=== PATIENT | male | born 1960 | race Caucasian/White ===

== ENCOUNTER → 2017-05-05 | Day surgery (SDC) | payer MEDICARE ==
[~2017-05-05] MED LIST: AMITIZA24 MCG PO; BELLADONNA/OPIUM 60 MG SUPP PR ONE; BONIVA; BOTULINUM TOXIN TYPE A 100 UNIT VIAL IM ONE; BUPIVACAINE HCL 0.5% 10ML MPF VIAL INJ ONE; CEFAZOLIN SOD 1 GM VIAL ONE; CLINDAMYCIN 600MG/D5W 50ML 50 ML IV ONE; D3 PO; DEXAMETHASONE SOD PHOS INJ 4 MG/ML VIAL ONE; EPHEDRINE SULFATE INJ 50 MG/10 ML SYR ONE; FENTANYL CITRATE/PF 100MCG/2 ML INJ ONE; FLAX OIL1000 MG PO; FLAXSEED1000 MG PO; GENERLAC10 GM/15 M PO; GENTAMICIN 80MG/NS 100 ML 100 ML IV ONE; IBANDRONATE SO150 MG PO; IOPAMIDOL 610MG/1ML 300 MG/ML VIAL IV ONE; LIDOCAINE 2% /EPINEPHRINE 20 ML SDV INJ ONE; LIDOCAINE HCL 2% LOCAL INJ 5 ML SDV VIAL INJ ONE; LINZESS PO; MAGNESIUM OXID400 MG PO; MIDAZOLAM HCL 2 MG/2 ML VIAL ONE; MIRALAX PO; NEUDEXTA PO; NIACIN500 M1 PO; NIACIN500 M2 PO; ONDANSETRON HCL INJ 2 MG/ML VIAL ONE; OXYBUTIN PO; OXYBUTYNIN CHLO10 MG PO; PROPOFOL IV EMULSION 10 MG/ML 20 ML VIAL ONE; ROCURONIUM BROMIDE 10 MG/ML 5ML VIAL ONE; SERTRALINE HCL50 MG PO; SEVOFLURANE INHAL SOLN 250 ML PEN BTL ONE; SUCCINYLCHOLINE 200 MG/10 ML SYR ONE; TESTOSTERONE CREAM TOP; TESTOSTERONE TOP; TRIAMTERENE-HCTZ1 EA PO; VITAMIN D35000 UNI1 PO; [UNRECOGNIZED DRUG - OTHER]; [UNRECOGNIZED DRUG - OTHER] IM
--- NOTE | 2017-07-02 06:12 | Operative Report ---
DATE OF PROCEDURE: May 05, 2017 PREOPERATIVE DIAGNOSES: 1. Refractory urge incontinence. 2. Urinary tract infections. POSTOPERATIVE DIAGNOSES: 1. Refractory urge incontinence. 2. Urinary tract infections. 3. Bulbar urethral stricture. OPERATIONS PERFORMED: 1. Cystourethroscopy with calibration and dilation of bulbar urethral stricture. 2. Cystourethroscopy with bilateral ureteral catheterization and retrograde ureteropyelography (separate procedure performed for the urinary tract infections). 3. Interpretation of retrograde ureteropyelography. 4. Cystourethroscopy with intravesical injection of Botox (separate procedure performed to help with the refractory urge incontinence that the patient has that is incompletely managed with the patient's InterStim). 5. Explantation of right-sided InterStim electrode array (separate procedure performed for the right-sided electrodes). 6. Explantation of right-sided InterStim pulse generator (separate procedure performed from the separate incision for the right-sided generator that is no longer functioning). 7. Complete InterStim system implantation with incision and implantation of tined quadripolar lead electrodes into the left foramen S3 (separate procedure performed on the left hand side). 8. Fluoroscopic guidance for needle placement. 9. Subcutaneous implantation of sacral nerve neurostimulator on the left hand side (separate procedure performed from the separate incision). 10. Electronic analysis and complex programming. ANESTHESIA: General. COMPLICATIONS: None. CLINICAL SUMMARY: Eric De La Torre is a 57-year-old man with the above preoperative diagnoses. He has had successful InterStim was improving, but has required Botox on top of that in order to achieve better continence. The patient continues to self catheterize 5 times daily, occasionally more. The patient's right InterStim is no longer functioning and he is brought for replacement of that system with a new system and removal of the old system as well as his regularly scheduled Botox injection and evaluation of his urinary system in light of his recurrent infections. He is aware of the risks of bleeding, infection, injury to adjacent structures, need for additional procedures. He understands he cannot have MRIs with his InterStim in place. He understood all these risks and elected to proceed. OPERATIVE PROCEDURE IN DETAIL: Informed consent was verified. Eric De La Torre was properly identified, taken to the operating room, and placed on the cystoscopy table in supine position. Anesthesia was uneventfully begun. The patient was then carefully and gently repositioned in dorsal lithotomy position with all pressure points well padded. His genitalia were prepared and draped in usual sterile fashion. The 22.5-Spanish cystoscope sheath with the visual obturator in place was atraumatically inserted into the patient's urethra. It was guided down to the bulbar region where there was a short urethral stricture. This stricture is recurrent. The patient seems to be able to catheterize despite this stricture. We calibrated and dilated the stricture to the sheath with the visual obturator and thus bringing it to 22.5-Spanish in size. We then passed through the relatively unremarkable prostate bed which was significant for very early BPH, and then we entered the patient's bladder where panendoscopy revealed grade 3 trabeculations, but there were no tumors, no stones, and no true diverticula. Normally positioned and configured ureteral orifices were identified. An 8-Spanish catheter was used to cannulate each ureter, and retrograde ureteral pyelograms were performed. Interpretation of retrograde ureteropyelography: Contrast was instilled in retrograde fashion bilaterally. There were no tumors, no stones, and no diverticula. Unobstructed drainage was observed bilaterally fluoroscopically. Two hundred units of Botox were dissolved in 20 mL of sterile saline. We then injected them in an even distribution in 1 mL aliquots throughout the supratrigonal bladder. Once all this was completed, the patient's bladder was drained. Cystoscope was withdrawn. The patient was then transported to the open operating room where he was carefully and gently placed on the operating table in the prone position with all pressure points carefully well padded. Pillows were placed under the shins to allow the toes to dangle freely and pillows were placed under the lower abdomen to flatten the sacrum. The patient's back and buttocks were prepared and draped in usual sterile fashion. An incision was made overlying the current right-sided InterStim lead electrode array. We isolated the lead by dissecting down. We then applied gentle traction, it was consistent until the lead tines let go the perisacral tissue and we were able to remove the lead. A separate incision was then made overlying the right-sided InterStim pulse generator. This incision was brought down onto the implant. We then explanted the implant. We divided the lead and thus we were able to remove the old lead and the old pulse generator. We then fulgurated the lining of the pocket in order to general helper in its elimination. Needle was then introduced into the left foramen S3. Depth of the needle was confirmed and adjusted fluoroscopically and proper needle position was confirmed with direct observation of the lifting of the perineum or "bellowing" and observation of plantarflexion of the great toe utilizing the test stimulator box. The needle stylette was then removed, and the directional guidewire was then placed and confirmed fluoroscopically. The foramen needle was then removed. An incision was made peripherally to the directional guide, and the dilator and introducer sheath were placed over the directional guidewire and directed into the foramen until the opaque marker of the dilator was seen midway through the sacrum. The dilator obturator was unlocked and removed and the lead was then placed through the introducer sheath to the first white line. Position was checked fluoroscopically. The lead was then further introduced until 3 electrodes were visible anterior to the sacrum. Each electrode was then tested for the findings above and after satisfactory positioning was confirmed, as well as using continuous fluoroscopy, the introducer sheath was retracted thus deploying the lead tines into the perisacral tissue. Through a fourth incision, further incision was made into subcutaneous tissues posterior to the iliac crest and a pocket was developed for the new neurostimulator. The tunneling tool and tube were then placed from the lead site pocket site, and the tunneling tool was then removed and the lead was then fed through the tube and pulled out into the pocket site. The lead was then cleansed of bodily fluids with sterile water and it was dried thoroughly. The lead was then inserted into the InterStim pulse generator with the metal bands aligned and with the blue tip clearly visible in the distal portion of the pulse generator header. A single set screw was then tightened with the hex wrench. All 4 incisions were copiously irrigated and we verified hemostasis. The pulse generator was then placed into the subcutaneous pocket and the programming head was then placed over the implanted nerve stimulator. All impedance parameters were within acceptable limits. All incisions were then approximated in layers utilizing absorbable suture in 2 layers. Mastisol and Steri-Strips were applied. Bio-occlusive dressings were applied. The patient was then uneventfully reversed from anesthesia and taken to recovery room in stable condition. There were no complications to the procedure and patient tolerated the procedure well. Sponge, needle, and instrument counts were quoted as correct x2 at the end of the case. A combination of Marcaine and lidocaine with epinephrine was utilized for infiltration of all incisions and pocket sites for postoperative pain control. Using the clinician ui programmer, the patient was programmed to the lead of optimum sensation and given explicit instructions on using the patient ui programmer prior to discharge. We will of course follow the patient up in the office, at which point in time will check his impedance. Job#: [id number]
== END | disposition home or self-care (01) ==
LOC: OR 09:16
PROVIDERS: ATTEND Urology
DX: T85.118A Breakdown (mechanical) of other implanted electronic stimulator of nervous system, initial encounter (principal); N39.41 Urge incontinence; N35.9 Urethral stricture, unspecified; N39.0 Urinary tract infection, site not specified; N32.89 Other specified disorders of bladder; N40.0 Benign prostatic hyperplasia without lower urinary tract symptoms; G35 Multiple sclerosis; I10 Essential (primary) hypertension; Z01.810 Encounter for preprocedural cardiovascular examination
CPT/HCPCS: 52281; 64581; 64590; 74420; 76000; 88300; 93005; 95972; C1778; C1787; C1894; J0587; J0690; J1100; J1580; J2001 ×2; J2250; J2405; L8679; L8696; Q9967

== ENCOUNTER 2017-05-23 19:34 | Inpatient (IN) | payer MEDICARE, OTHER ==
[~2017-05-23] VITALS: Ht 193 cm; Wt 114.3 kg
[~2017-05-23 19:34] MED LIST changes: -BELLADONNA/OPIUM 60 MG SUPP PR ONE; -BOTULINUM TOXIN TYPE A 100 UNIT VIAL IM ONE; -BUPIVACAINE HCL 0.5% 10ML MPF VIAL INJ ONE; -CEFAZOLIN SOD 1 GM VIAL ONE; -CLINDAMYCIN 600MG/D5W 50ML 50 ML IV ONE; -DEXAMETHASONE SOD PHOS INJ 4 MG/ML VIAL ONE; -EPHEDRINE SULFATE INJ 50 MG/10 ML SYR ONE; -FENTANYL CITRATE/PF 100MCG/2 ML INJ ONE; -FLAXSEED1000 MG PO; -GENTAMICIN 80MG/NS 100 ML 100 ML IV ONE; -IOPAMIDOL 610MG/1ML 300 MG/ML VIAL IV ONE; -LIDOCAINE 2% /EPINEPHRINE 20 ML SDV INJ ONE; -LIDOCAINE HCL 2% LOCAL INJ 5 ML SDV VIAL INJ ONE; -MAGNESIUM OXID400 MG PO; -MIDAZOLAM HCL 2 MG/2 ML VIAL ONE; -ONDANSETRON HCL INJ 2 MG/ML VIAL ONE; -PROPOFOL IV EMULSION 10 MG/ML 20 ML VIAL ONE; -ROCURONIUM BROMIDE 10 MG/ML 5ML VIAL ONE; -SEVOFLURANE INHAL SOLN 250 ML PEN BTL ONE; -SUCCINYLCHOLINE 200 MG/10 ML SYR ONE; -VITAMIN D35000 UNI1 PO
[2017-05-23] MEDS ORDERED: SODIUM CHLORIDE 0.9% 500ML 500 ML IV STA (19:43)
[2017-05-23] MEDS ORDERED: CEFTRIAXONE SOD 1 GM VIAL IV SCH (19:45)
[2017-05-23] MEDS ORDERED: TRIAMTERENE-HCTZ1 EA PO (19:46)
[2017-05-23] MEDS ORDERED: NIACIN500 M2 PO (19:46)
[2017-05-23] MEDS ORDERED: MAGNESIUM OXID400 MG PO (19:46)
[2017-05-23] MEDS ORDERED: FLAXSEED1000 MG PO (19:46)
[2017-05-23] MEDS ORDERED: VITAMIN D35000 UNI1 PO (19:46)
[2017-05-23] MEDS ORDERED: SODIUM CHLORIDE 0.9% 1000ML 1,000 ML IV STA (20:01)
[2017-05-23 20:14] LABS: BASOPHILS # (AUTO) 0.1 (0.0-0.1); BASOPHILS % 0.7 % (0.0-1.0); EOSINOPHILS # (AUTO) 0.2 (0.0-0.4); EOSINOPHILS % 1.8 % (0.0-6.0); HEMATOCRIT 44.7 % (38.2-49.6); HEMOGLOBIN 14.9 g/dL (14.0-18.0); LYMPHOCYTES % 22.9 % (18.0-39.1); MEAN CORPUSCULAR HGB CONC 33.3 g/dL (31-35); MEAN CORPUSCULAR VOLUME 89.9 fL (81-99); MONOCYTES # (AUTO) 0.7 (0.2-0.8); MONOCYTES % 8.5 % (4.4-11.3); NEUTROPHILS # (AUTO) 5.7 (2.1-6.9); NEUTROPHILS % 65.8 % (38.7-80.0); PLATELET COUNT 311 x10e3/uL (140-360); RED BLOOD COUNT 4.97 x10e6/uL (4.3-5.7); RED CELL DISTRIBUTION WIDTH 12.3 % (11.7-14.4)
[2017-05-23 20:23] LABS: BILIRUBIN,URINE NEGATIVE (NEGATIVE); CLARITY,URINE CLOUDY (CLEAR); COLOR,URINE YELLOW (YELLOW); KETONES,URINE NEGATIVE (NEGATIVE); LEUKOCYTE ESTERASE ,URINE 2+ (NEGATIVE); PROTEIN,URINE DIPSTICK NEGATIVE (NEGATIVE); URINE UROBILINOGEN 0.2 mg/dL (0.2 - 1)
[2017-05-23 20:25] LABS: NITRITE,URINE POSITIVE (NEGATIVE)
[2017-05-23 20:29] LABS: ALANINE AMINOTRANSFERASE 31 IU/L (0-55); ALBUMIN 4.1 g/dL (3.5-5.0); ALBUMIN/GLOBULIN RATIO 0.9 (0.8-2.0); ALKALINE PHOSPHATASE 69 IU/L (40-150); ANION GAP 14.1 mmol/L (8-16); BLOOD UREA NITROGEN 13 mg/dL (7-26); BUN/CREATININE RATIO 15 (6-25); CALCIUM 8.8 mg/dL (8.4-10.2); CARBON DIOXIDE 26 mmol/L (22-29); CHLORIDE 101 mmol/L (98-107); CREATININE, SERUM 0.86 mg/dL (0.72-1.25); EST GLOMERULAR FILTRATION RATE > 60 ML/MIN (60-); GLUCOSE 134 mg/dL (74-118); POTASSIUM 4.1 mmol/L (3.5-5.1); SODIUM 137 mmol/L (136-145)
[2017-05-23 20:35] LABS: AMORPHOUS SEDIMENT,URINE FEW (FEW); BACTERIA,URINE MANY /HPF; EPITHELIAL CELLS,URINE RARE /LPF
--- NOTE | 2017-05-23 21:11 | Diagnostic Imaging Report ---
CT Abdomen and Pelvis without contrast INDICATION: Unable to urinate TECHNIQUE: Thin collimation axial images obtained from the diaphragm to the level of the pubic symphysis without nonionic intravenous contrast. RADIATION DOSE: Total DLP: 798.1 mGy*cm Estimated effective dose: (DLP x 0.015 x size factor) mSv CTDIvol has been reviewed. It is below the limits set by the Radiation Protocol Committee (RPC). COMPARISON: None. ABDOMEN FINDINGS: Lung Bases: Mild eventration of the left diaphragm with overlying subsegmental atelectasis or scar. Visualized portion of the mediastinum imaged. Prominent right cardiophrenic fat pads. The heart is normal in size Liver: Decreased attenuation. No mass. Gallbladder: Present and is contracted. No ductal dilatation. Pancreas: Normal attenuation without mass. Spleen: Normal size without mass. Adrenal Glands: No evidence for mass. Kidneys: Right: No renal calculus. Low attenuating lesion in the posterior interpolar cortex measures 16 mm. No hydronephrosis Left: Punctate calculus in the interpolar cortex. Low attenuating lesion in the upper pole near the hilum measures 14 mm.. No hydronephrosis. Lymph Nodes: No enlarged abdominal or periaortic lymph nodes. Aorta: Normal in diameter with scattered calcifications. PELVIS FINDINGS: Bowel: Stomach: Small gastric fundal diverticulum. Small Bowel: Normal in caliber with normal wall thickness. Large Bowel: Mild to moderate stool burden in the large bowel. There are a few scattered diverticula. No associated inflammation. Appendix: Not visualized and may be absent. Bladder: Contains a Gong catheter and is collapsed.. Ureters: No ureteral dilatation or calculus. No free fluid or fluid collection.. Bones: Compression deformity of L1 measuring 30% with kyphosis of T12-L1. There are associated degenerative changes of T12-L1. The spinal canal is patent. There are mild degenerative changes of the hips. No destructive lesions. Soft tissues: There is a stimulator in the posterior left pelvis with the electrode traversing the sacrum. This could be a bladder stimulator. Subcutaneous fluid collection in the posterior right pelvis measures 4.5 x 1.4 cm. Mild soft tissue inflammation of the proximal right thigh. IMPRESSION: 1. Tiny left intrarenal calculus. No obstructive uropathy. 2. Stimulator lead terminating in the left pelvis. This could be a bladder stimulator. 3. Bilateral renal cortical lesions, likely cysts. 4. Hepatic steatosis. 6. Chronic compression fracture of L1 with resulting kyphosis. Signed by: Dr. Daxa Marie MD on 05/23/2017 9:07 PM
[2017-05-23] MEDS: PIPER-TAZ 3.375 GM 50 ML IV SCH (21:36)
[2017-05-23] MEDS ORDERED: SODIUM CHLORIDE 0.9% 1000ML 1,000 ML IV SCH (21:44)
[2017-05-23] MEDS ORDERED: MORPHINE SULFATE 2 MG/ML SYR IV PRN (21:45)
[2017-05-23] MEDS ORDERED: ONDANSETRON HCL INJ 2 MG/ML VIAL IV PRN (21:45)
--- OUTSIDE RECORDS SUMMARY | 2017-05-23 22:20 | XMS REPORT ---
Author Author [facility] Address Unknown Phone Unavailable Care Team Providers Care Radiation Control Technician Name Role Phone PAT LAMA Unavailable Unavailable Problems This patient has no known problems. Allergies, Adverse Reactions, Alerts This patient has no known allergies or adverse reactions. Medications This patient has no known medications. Results Test Description Test Time Test Comments Text Results Atomic Results Result Comments CT ABDOMEN/PELVIS WO [place] [address] Patient Name: WILDER TIM MR #: [id number] : 1960 Age/Sex: 57/M Req #: [id number] Adm Physician: Ordered by: PAT LAMA MD Report #: [id number] Location: ER Room/Bed: Procedure: [id number] CT/CT ABDOMEN/PELVIS WO Exam Date: 05/23/17 Exam Time: 2029 REPORT STATUS: Signed CT Abdomen and Pelvis without contrast INDICATION: Unable to urinate TECHNIQUE: Thin collimation axial images obtained from the diaphragm to the level of the pubic symphysis without nonionic intravenous contrast. RADIATION DOSE: Total DLP: 798.1 mGy*cm Estimated effective dose: (DLP x 0.015 x size factor) mSv CTDIvol has been reviewed. It is below the limits set by the Radiation Protocol Committee (RPC). COMPARISON: None. ABDOMEN FINDINGS: Lung Bases: Mild eventration of the left diaphragm with overlying subsegmental atelectasis or scar. Visualized portion of the mediastinum imaged. Prominent right cardiophrenic fat pads. The heart is normal in size Liver: Decreased attenuation. No mass. Gallbladder: Present and is contracted. No ductal dilatation. Pancreas: Normal attenuation without mass. Spleen: Normal size without mass. Adrenal Glands: No evidence for mass. Kidneys: Right: No renal calculus. Low attenuating lesion in the posterior interpolar cortex measures 16 mm. No hydronephrosis Left: Punctate calculus in the interpolar cortex. Low attenuating lesion in the upper pole near the hilum measures 14 mm.. No hydronephrosis. Lymph Nodes: No enlarged abdominal or periaortic lymph nodes. Aorta: Normal in diameter with scattered calcifications. PELVIS FINDINGS: Bowel: Stomach: Small gastric fundal diverticulum. Small Bowel: Normal in caliber with normal wall thickness. Large Bowel: Mild to moderate stool burden in the large bowel. There are a few scattered diverticula. No associated inflammation. Appendix: Not visualized and may be absent. Bladder: Contains a Gong catheter and is collapsed.. Ureters : No ureteral dilatation or calculus. No free fluid or fluid collection.. Bones: Compression deformity of L1 measuring 30% with kyphosis of T12-L1. There are associated degenerative changes of T12-L1. The spinal canal is patent. There are mild degenerative changes of the hips. No destructive lesions. Soft tissues: There is a stimulator in the posterior left pelvis with the electrode traversing the sacrum. This could be a bladder stimulator. Subcutaneous fluid collection in the posterior right pelvis measures 4.5 x 1.4 cm. Mild soft tissue inflammation of the proximal right thigh. IMPRESSION: 1. Tiny left intrarenal calculus. No obstructive uropathy. 2. Stimulator lead terminating in the left pelvis. This could be a bladder stimulator. 3. Bilateral renal cortical lesions, likely cysts. 4. Hepatic steatosis. 6. Chronic compression fracture of L1 with resulting kyphosis. Signed by: Dr. Lori Marie MD on 05/23/2017 9:07 PM Dictated By: LORI MARIE MD 06 Transcribed By: ADEN on 05/23/172106 COPY TO: PAT LAMA MD
[2017-05-23 23:18] VITALS: BP 160/73
[2017-05-23 23:55] VITALS: BP 160/73
[2017-05-24] VITALS (8 sets, daily range): BP systolic 133–153; BP diastolic 60–70
[2017-05-24] MEDS: PIPER-TAZ 3.375 GM 50 ML IV SCH ×4 (03:27→21:30)
[2017-05-24 06:52] LABS: BASOPHILS # (AUTO) 0.1 (0.0-0.1); BASOPHILS % 0.8 % (0.0-1.0); EOSINOPHILS # (AUTO) 0.2 (0.0-0.4); EOSINOPHILS % 3.3 % (0.0-6.0); HEMATOCRIT 38.8 % (38.2-49.6); HEMOGLOBIN 13.2 g/dL (14.0-18.0); LYMPHOCYTES # (AUTO) 1.8 (1.0-3.2); LYMPHOCYTES % 24.2 % (18.0-39.1); MEAN CORPUSCULAR HEMOGLOBIN 30.4 pg (28-32); MEAN CORPUSCULAR VOLUME 89.4 fL (81-99); MONOCYTES # (AUTO) 0.9 (0.2-0.8); MONOCYTES % 12.3 % (4.4-11.3); NEUTROPHILS # (AUTO) 4.4 (2.1-6.9); PLATELET COUNT 261 x10e3/uL (140-360); RED BLOOD COUNT 4.34 x10e6/uL (4.3-5.7); RED CELL DISTRIBUTION WIDTH 12.4 % (11.7-14.4)
[2017-05-24 07:17] LABS: ALANINE AMINOTRANSFERASE 26 IU/L (0-55); ALBUMIN 3.1 g/dL (3.5-5.0); ALBUMIN/GLOBULIN RATIO 0.9 (0.8-2.0); ALKALINE PHOSPHATASE 54 IU/L (40-150); BLOOD UREA NITROGEN 13 mg/dL (7-26); BUN/CREATININE RATIO 16 (6-25); CALCIUM 8.5 mg/dL (8.4-10.2); CARBON DIOXIDE 23 mmol/L (22-29); CHLORIDE 108 mmol/L (98-107); CREATININE, SERUM 0.81 mg/dL (0.72-1.25); EST GLOMERULAR FILTRATION RATE > 60 ML/MIN (60-); GLUCOSE 110 mg/dL (74-118); SODIUM 140 mmol/L (136-145)
[2017-05-24] MEDS: VANCOMYCIN 1GM/NS 250 ML 250 ML IV SCH ×2 (07:43→19:20)
[2017-05-24] MEDS ORDERED: INTERFERON BETA 30 MCG IM SCH (09:15)
[2017-05-24] MEDS ORDERED: AVONEX INJ SCH (09:30)
--- NOTE | 2017-05-24 13:57 | History and Physical ---
PRIMARY CARE PROVIDER: Not available. UPPER LEATHER CUTTER: Dr. Alfonso Forbes. CHIEF COMPLAINT: Complicated urinary tract infection with pus discharge from the penis and also multiple sclerosis baseline. HISTORY: This 57 year male with multiple sclerosis has very limited function but he straight caths himself. Apparently he was developing increasing pain and pustular discharge. Patient was brought into the hospital for evaluation. Patient is stable at this time. He does have penile pus drainage. He was placed on antibiotics. The patient is otherwise stable. He was not able to void completely. Gong catheter was placed. PAST MEDICAL HISTORY: Multiple sclerosis. Neurogenic urinary bladder with straight cath for output. Ambulatory dysfunction. HOME MEDICATIONS: List reviewed. ALLERGIES: NO KNOWN DRUG ALLERGY. SOCIAL HISTORY: Patient does not smoke or use alcohol. No recreational drugs. REVIEW OF SYSTEMS: As mentioned. PHYSICAL EXAMINATION GENERAL: Patient is not in acute distress. He is awake. VITAL SIGNS: Temperature is 98. Blood pressure 140/75. Pulse rate 102. Respirations 18. HEENT: Normocephalic, atraumatic, anicteric. NECK: Supple grossly. PULMONARY: Clear. CARDIOVASCULAR: Regular rate and rhythm. ABDOMEN: Soft, nondistended, nontender. EXTREMITIES: No cyanosis or edema. NEUROLOGIC: Multiple sclerosis. : Penile area was draining pus discharge. Gong catheter in place. LABORATORY: Sodium 140, potassium 4, chloride 108, bicarb 23, BUN 13, creatinine 0.8. Glucose 110. WBC 7.4, hemoglobin 13, hematocrit 39, platelets 261. Urine is positive for nitrite, 2+ leukocyte esterase, WBC 20, many bacteria. IMPRESSION 1. Complicated urinary tract infection with neurogenic bladder and also chronic straight catheterization for urine output. 2. Multiple sclerosis. 3. Ambulatory dysfunction secondary to above. PLAN: Continue with IV antibiotics. Home medications. PT, OT. Gong care. Consultation with Dr. Alfonso Forbes has been done, and the patient has been seen. Job#: [id number]
[2017-05-24] MEDS ORDERED: ARTIFICIAL TEARS (OPTH) 15 ML BTL OU PRN (14:30)
[2017-05-24] MEDS: OXYBUTYNIN CHLORIDE 5 MG TAB PO SCH (16:49)
[2017-05-24] MEDS: ENOXAPARIN SOD INJ 40 MG/0.4 ML SYR SC SCH (16:49)
[2017-05-24] MEDS: MAGNESIUM OXIDE 400 MG TAB PO SCH (16:49)
[2017-05-24] MEDS: POLYETHYLENE GLYCOL 3350 17 GM PACK PO SCH (16:51)
[2017-05-24] MEDS ORDERED: MAGNESIUM OXIDE 400 MG TAB PO SCH (17:00)
[2017-05-25] VITALS (8 sets, daily range): BP systolic 135–164; BP diastolic 60–96
[2017-05-25] MEDS: PIPER-TAZ 3.375 GM 50 ML IV SCH ×2 (03:35→09:10)
[2017-05-25 06:41] LABS: BASOPHILS # (AUTO) 0.1 (0.0-0.1); BASOPHILS % 0.6 % (0.0-1.0); EOSINOPHILS # (AUTO) 0.2 (0.0-0.4); EOSINOPHILS % 2.8 % (0.0-6.0); HEMATOCRIT 40.1 % (38.2-49.6); HEMOGLOBIN 13.5 g/dL (14.0-18.0); LYMPHOCYTES # (AUTO) 1.8 (1.0-3.2); MEAN CORPUSCULAR HEMOGLOBIN 30.3 pg (28-32); MEAN CORPUSCULAR HGB CONC 33.7 g/dL (31-35); MEAN CORPUSCULAR VOLUME 90.1 fL (81-99); MONOCYTES # (AUTO) 0.8 (0.2-0.8); MONOCYTES % 10.1 % (4.4-11.3); NEUTROPHILS % 63.1 % (38.7-80.0); PLATELET COUNT 258 x10e3/uL (140-360); RED BLOOD COUNT 4.45 x10e6/uL (4.3-5.7); RED CELL DISTRIBUTION WIDTH 12.5 % (11.7-14.4)
[2017-05-25 07:24] LABS: BLOOD UREA NITROGEN 8 mg/dL (7-26); BUN/CREATININE RATIO 10 (6-25); CARBON DIOXIDE 25 mmol/L (22-29); CHLORIDE 107 mmol/L (98-107); CREATININE, SERUM 0.77 mg/dL (0.72-1.25); EST GLOMERULAR FILTRATION RATE > 60 ML/MIN (60-); GLUCOSE 103 mg/dL (74-118); SODIUM 139 mmol/L (136-145)
[2017-05-25] MEDS: VANCOMYCIN 1GM/NS 250 ML 250 ML IV SCH (07:42)
[2017-05-25] MEDS: OXYBUTYNIN CHLORIDE 5 MG TAB PO SCH ×2 (08:19→16:35)
[2017-05-25] MEDS: POLYETHYLENE GLYCOL 3350 17 GM PACK PO SCH ×2 (08:21→16:35)
[2017-05-25] MEDS: NIACIN 500 MG TABSR PO SCH (08:21)
[2017-05-25] MEDS: MAGNESIUM OXIDE 400 MG TAB PO SCH ×2 (08:42→16:35)
[2017-05-25] MEDS: FLAXSEED OIL PO SCH ×2 (08:43→16:36)
[2017-05-25] MEDS ORDERED: FLAXSEED OIL 1400 MG PO SCH (09:00)
[2017-05-25] MEDS ORDERED: CHOLECALCIFEROL 1,000 UNIT TAB PO SCH (09:00)
[2017-05-25] MEDS ORDERED: NON-FORMULARY MEDICATION (Cholecalciferol (Vitamin D3) (Vitamin D3) 1 TAB) PO SCH (09:00)
[2017-05-25] MEDS ORDERED: MEROPENEM 500MG 500 MG in SODIUM CHLORIDE 0.9% 50ML 50 ML IV SCH (13:45)
[2017-05-25] MEDS: ENOXAPARIN SOD INJ 40 MG/0.4 ML SYR SC SCH (16:35)
[2017-05-25] MEDS: MEROPENEM 500 MG VIAL IV SCH ×2 (16:35→23:31)
[2017-05-25] MEDS ORDERED: MEROPENEM 500 MG VIAL IV SCH (18:00)
--- NOTE | 2017-05-25 21:37 | Diagnostic Imaging Report ---
CHEST XRAY LINE PLACEMENT, 05/25/2017 8:47 PM Technique: CHEST XRAY LINE PLACEMENT Comparison: CT 05/23/2017. Clinical history: PICC line placement Findings: See Impression Impression: 1. Lines/Tubes: Right PICC tip at the cavoatrial junction. 2. Prominent cardiomediastinal silhouette likely accentuated by technique. 3. Left basilar pleural thickening with associated atelectasis or scarring. Signed by: Dr Ruma Momin MD on 05/25/2017 9:33 PM
--- NOTE | 2017-05-25 23:32 | Consultation ---
DATE OF CONSULTATION: May 25, 2017 REASON FOR CONSULTATION: Complicated pyelonephritis. HISTORY OF PRESENT ILLNESS: This patient has multiple sclerosis, was getting progressively worse. He does have a bladder problem and he is using straight cath. The patient has recurrent UTI for the last year or so and has been on several oral antibiotic. At this time, is coming with fever, chills, weak, not feeling well. The patient has pus coming from his penis on admission. Patient was admitted. Urine cultures obtain. He is growing multidrug-resistant ESBL. Infectious disease was consulted. He is very aware of his condition. He has multiple sclerosis and debilitating. PAST MEDICAL HISTORY: Multiple sclerosis, bladder straight cath, ambulatory dysfunction. PAST SURGICAL HISTORY: As above. ALLERGIES: NKA. SOCIAL HISTORY: There is no smoking, drug abuse, alcohol abuse. FAMILY HISTORY: Otherwise unremarkable. REVIEW OF SYSTEMS HEENT: Negative. PULMONARY: Negative. CARDIAC: Negative. : There is urgency and frequency, suprapubic pain. GI: There is no nausea, no vomiting. LABORATORY DATA: Reviewed. PHYSICAL EXAMINATION GENERAL: He is currently alert, oriented, does not seem to be in acute distress. VITALS: Stable, currently afebrile. HEENT: Not icteric. NECK: Supple. CHEST: Clear. HEART: S1, S2. ABDOMEN: Soft. Bowel sounds present. No tenderness. EXTREMITIES: No edema. IMPRESSION: Pyelonephritis, ureteritis in a patient who has multiple sclerosis with extended spectrum beta-lactamase. Agree with 14 days. Unfortunately, he will need a peripherally inserted central catheter line. Will discuss the case . Will monitor. Arrange home intravenous antibiotic. He has to do suppressive treatment as an outpatient because of the recurrent urinary tract infection. Discussed with the patient. Will follow. Job#: [id number]
[2017-05-26] VITALS (7 sets, daily range): BP systolic 145–185; BP diastolic 73–88
[2017-05-26] MEDS: MEROPENEM 500 MG VIAL IV SCH ×3 (06:01→17:22)
[2017-05-26] MEDS: OXYBUTYNIN CHLORIDE 5 MG TAB PO SCH ×2 (08:30→17:00)
[2017-05-26] MEDS: NIACIN 500 MG TABSR PO SCH (08:30)
[2017-05-26] MEDS: POLYETHYLENE GLYCOL 3350 17 GM PACK PO SCH ×2 (08:30→17:00)
[2017-05-26] MEDS: MAGNESIUM OXIDE 400 MG TAB PO SCH ×2 (08:30→17:00)
--- NOTE | 2017-05-26 14:42 | Progress Note ---
DATE: May 26, 2017 Mr. De La Torre is feeling better. There is no new complaints. He wants to go to the skilled care facility. PHYSICAL EXAMINATION GENERAL: He is currently alert and oriented. Does not seem to be in acute distress. VITALS: Stable and currently afebrile. HEENT: Not icteric. NECK: Supple. CHEST: Clear. CORE: Normal. ABDOMEN: Soft. Positive bowel sounds. EXTREMITIES: No edema. SKIN: No rash. IMPRESSION 1. Sepsis with Escherichia coli with gram-negative extended spectrum beta-lactamase: He will need 2 weeks of meropenem. 2. Blood cultures showing gram-positive cocci today: I am not sure. This could be contamination. Will add vancomycin. Will recheck blood cultures. Will hold off discharge for now. 3. Multiple sclerosis. 4. Will follow with you. Job#: [id number] DARRIN
[2017-05-26] MEDS: VANCOMYCIN 1GM/NS 250 ML 250 ML IV SCH (15:15)
[2017-05-26] MEDS: ENOXAPARIN SOD INJ 40 MG/0.4 ML SYR SC SCH (17:00)
[2017-05-26] MEDS: CHOLECALCIFEROL 1,000 UNIT TAB PO SCH (21:31)
[2017-05-27] VITALS (7 sets, daily range): BP systolic 101–171; BP diastolic 69–86
[2017-05-27] MEDS: MEROPENEM 500 MG VIAL IV SCH ×5 (00:42→23:35)
[2017-05-27] MEDS: VANCOMYCIN 1GM/NS 250 ML 250 ML IV SCH ×2 (00:43→13:32)
[2017-05-27] MEDS: POLYETHYLENE GLYCOL 3350 17 GM PACK PO SCH ×2 (08:56→17:00)
[2017-05-27] MEDS: OXYBUTYNIN CHLORIDE 5 MG TAB PO SCH ×2 (08:56→17:00)
[2017-05-27] MEDS: MAGNESIUM OXIDE 400 MG TAB PO SCH ×2 (08:56→17:00)
[2017-05-27] MEDS: NIACIN 500 MG TABSR PO SCH (08:56)
[2017-05-27] MEDS: FLAXSEED OIL PO SCH (08:57)
[2017-05-27] MEDS ORDERED: AVONEX INJ SCH (09:30)
[2017-05-27] MEDS: ENOXAPARIN SOD INJ 40 MG/0.4 ML SYR SC SCH (17:00)
[2017-05-27] MEDS: ACETAMINOPHEN 325 MG TAB PO PRN ×2 (17:45→23:52)
[2017-05-27] MEDS: CHOLECALCIFEROL 1,000 UNIT TAB PO SCH (21:00)
[2017-05-28] VITALS (7 sets, daily range): BP systolic 130–163; BP diastolic 67–81
[2017-05-28] MEDS: VANCOMYCIN 1GM/NS 250 ML 250 ML IV SCH ×2 (02:11→14:40)
[2017-05-28] MEDS: MEROPENEM 500 MG VIAL IV SCH ×4 (06:12→23:44)
[2017-05-28] MEDS: MAGNESIUM OXIDE 400 MG TAB PO SCH ×2 (08:30→17:20)
[2017-05-28] MEDS: OXYBUTYNIN CHLORIDE 5 MG TAB PO SCH ×2 (08:30→17:20)
[2017-05-28] MEDS: POLYETHYLENE GLYCOL 3350 17 GM PACK PO SCH ×2 (08:30→17:20)
[2017-05-28] MEDS: NIACIN 500 MG TABSR PO SCH (08:45)
[2017-05-28] MEDS: FLAXSEED OIL PO SCH (09:00)
[2017-05-28] MEDS: ENOXAPARIN SOD INJ 40 MG/0.4 ML SYR SC SCH (17:20)
--- NOTE | 2017-05-28 17:54 | Progress Note ---
DATE: May 28, 2017 INFECTIOUS DISEASE PROGRESS NOTE SUBJECTIVE: Mr. De La Torre is doing well today. There is no new complaint. PHYSICAL EXAMINATION GENERAL: He is currently alert, oriented, does not seem to be in acute distress. VITAL SIGNS: Stable. Currently afebrile. HEENT: He does not appear icteric. NECK: Supple. CHEST: Clear. HEART: S1 and S2. No S3 or S4, no murmur. ABDOMEN: Soft. IMPRESSION: Extended-spectrum beta-lactamase Escherichia coli. The plan is to finish 2 weeks of meropenem. Going to SNF. Job#: [id number] EV
--- NOTE | 2017-05-28 17:58 | Progress Note ---
DATE: May 27, 2017 INFECTIOUS DISEASE PROGRESS NOTE SUBJECTIVE: Mr. De La Torre is doing well. There is no new complaint. This is for May 27. I do not see the consult; so, I am dictating again. REVIEW OF SYSTEMS HEENT: Negative. PULMONARY: Negative. CARDIAC: Negative. : Negative. PHYSICAL EXAMINATION GENERAL: He is currently alert, oriented, does not seem to be in acute distress. VITAL SIGNS: Stable. Currently afebrile. HEENT: He does not appear icteric. NECK: Supple. CHEST: Clear. HEART: S1 and S2. No S3 or S4, no murmur. ABDOMEN: Soft. Bowel sounds present. No tenderness. EXTREMITIES: No edema. SKIN: No rash. Laboratory data reviewed, chart reviewed. IMPRESSION: Urinary tract infection with multidrug resistance. Doing well with meropenem. The plan is to continue meropenem for 14 days. He is going to a correction Monday. Discussed with the patient. Job#: [id number] EV
[2017-05-28] MEDS: CHOLECALCIFEROL 1,000 UNIT TAB PO SCH (22:00)
[2017-05-29] VITALS: BP_SYST 158; BP_DIAS 67; BP_DIAS 68
[2017-05-29 00:01] VITALS: BP 154/81
[2017-05-29] MEDS: VANCOMYCIN 1GM/NS 250 ML 250 ML IV SCH (01:16)
[2017-05-29] MEDS: MEROPENEM 500 MG VIAL IV SCH (05:26)
[2017-05-29 07:49] VITALS: BP 156/70
[2017-05-29] MEDS: POLYETHYLENE GLYCOL 3350 17 GM PACK PO SCH (09:00)
[2017-05-29] MEDS: MAGNESIUM OXIDE 400 MG TAB PO SCH (09:00)
[2017-05-29] MEDS: OXYBUTYNIN CHLORIDE 5 MG TAB PO SCH (09:00)
[2017-05-29] MEDS: FLAXSEED OIL PO SCH (09:00)
[2017-05-29] MEDS: NIACIN 500 MG TABSR PO SCH (09:00)
[2017-05-29 11:43] VITALS: BP 139/98
--- NOTE | 2017-05-29 15:32 | Discharge Summary ---
CONSULTANTS: Dr. Alfonso Forbes and Dr. Anthony Burrell. FINAL DIAGNOSES: 1. Complicated urinary tract infection associated with neurogenic urinary bladder associated with complicated multidrug resistant bacteria, extended-spectrum beta lactamase. 2. Baseline multiple sclerosis with chronic urinary catheterization for urine output. 3. Pyelonephritis and cystitis. SUMMARY: The patient is a pleasant 57-year-old male chronically straight cathed himself for urinary output secondary to urinary retention from multiple sclerosis. Patient basically came in with infection, fever, not feeling well, dehydration, signs and symptoms consistent with pyelonephritis. Patient had multiple treatments as outpatient that failed miserably. Patient now inpatient, treated and cultured. Microbiology: Urine culture grew out to be ESBL. The patient also had positive gram stain on blood culture, but only one set could be contamination. His fever resolved. When he came in, his lab work showed left shift. The patient was stable now. . He is doing much better. He is back to his usual home medication. He will go to skilled facility for IV antibiotic, most likely meropenem per infectious disease, Dr. Burrell, on consultation recommendations. The patient will also receive physical therapy due to his multiple sclerosis as well. The patient is stable for discharge today. All instructions were given through RN to continue with current active medications and along with that the patient may take his home medication for his multiple sclerosis, and the patient will take antibiotic per Dr. Burrell. The patient is stable for discharge today. The patient will be discharged to [facility] skilled facility. Job#: [id number]
[2017-05-29 15:42] VITALS: BP 165/75
== END 2017-05-29 17:41 | DRG 699 ==
LOC: ER 19:34 → ERHOLD 22:16 → MED/SURG 22:45 → MED/SURG3 05-25 12:39
PROVIDERS: ADMIT Internal Medicine; ATTEND Internal Medicine
PROC: 02HV33Z Insertion of Infusion Device into Superior Vena Cava, Percutaneous Approach (ICD-10-PCS; principal; 2017-05-23)
DX: T83.511A Infection and inflammatory reaction due to indwelling urethral catheter, initial encounter (principal); N10 Acute pyelonephritis; R78.81 Bacteremia; G35 Multiple sclerosis; N28.1 Cyst of kidney, acquired; I10 Essential (primary) hypertension; N31.9 Neuromuscular dysfunction of bladder, unspecified; B96.20 Unspecified Escherichia coli [E. coli] as the cause of diseases classified elsewhere; Z16.12 Extended spectrum beta lactamase (ESBL) resistance; Z80.42 Family history of malignant neoplasm of prostate; R53.81 Other malaise; Z87.440 Personal history of urinary (tract) infections; N28.89 Other specified disorders of kidney and ureter
CPT/HCPCS: 36415; 36569; 71045; 74176; 80048; 80053; 80202; 81001; 83605; 83735; 85025; 87040; 87071; 87086; 87186; 87205; 97139; 99284; J0696; J1650; J2185; J2543; J3370; J7030; J7040